=== PATIENT | male | born 1955 | race Caucasian/White ===

== ENCOUNTER 2021-05-12 20:27 | Day surgery (SDCO) | payer MEDICARE, OTHER ==
[~2021-05-12] VITALS: Ht 175.3 cm; Wt 77.1 kg
[~2021-05-12 20:27] MED LIST: ASPIRIN CHEWABL81 MG PO; DIGITEK125 MCG PO; DUONEB 2.5-0.5M1 AMP INH; HABITROL14 MG TD; LOPRESSOR25 MG PO
[2021-05-12 21:15] LABS: BASOPHIL 1.4 % (0-2); EOSINOPHIL 1.2 % (0-7); HCT 43.2 % (42.0-52.0); HGB 13.8 g/dl (13.2-18.0); MCH 28.9 pg (25.0-31.0); MCHC 31.9 g/dL (32.0-36.0); MCV 90.4 fL (78.0-100.0); MONOCYTE 10.3 % (0-12); MPV 8.7 fL (6.0-9.5); NEUTROPHIL 53.8 % (41-80); NRBC 0; PLT 405 K/uL (150-400); RBC 4.78 M/uL (4.70-6.00); RDW 13.2 % (11.5-14.0); WBC 9.9 K/uL (4.0-10.5)
[2021-05-12 21:20] LABS: INR 1.2 (0.9-1.2); PROTHROMBIN TIME 14.6 SECONDS (11.8-13.4); PTT 32.5 SECONDS (24.4-34.7)
[2021-05-12 21:21] LABS: D-DIMER 1.86 ug/mLFEU (0.00-0.41)
[2021-05-12 21:27] LABS: ALBUMIN 2.3 g/dL (3.4-5.0); BILIRUBIN - TOTAL 0.2 mg/dL (0.2-1.0); BUN/CREAT RATIO (CALC) 22.4 RATIO; CREATININE 0.85 mg/dL (0.67-1.17); GLOBULIN (CALCULATION) 4.3 g/dL; POTASSIUM 3.9 mmol/L (3.5-5.1); TOTAL PROTEIN 6.6 g/dL (6.4-8.2)
[2021-05-12 21:32] LABS: PRO-BNP 238 pg/mL (<125)
[2021-05-12 23:59] LABS: BILIRUBIN NEGATIVE (NEGATIVE); BLOOD NEGATIVE Ery/uL (NEGATIVE); CLARITY CLEAR (CLEAR); COLOR YELLOW (YELLOW); GLUCOSE (U) NORMAL (NORMAL); LEUKOCYTES NEGATIVE Leu/uL (NEGATIVE); NITRITE NEGATIVE (NEGATIVE); PROTEIN NEGATIVE (NEGATIVE); pH 6.5 (5.0-9.0)
[2021-05-13 00:05] LABS: AMPHETAMINES POSITIVE (NEGATIVE); BARBITURATES NEGATIVE (NEGATIVE); ECSTASY (MDMA) NEGATIVE (NEGATIVE); MARIJUANA (THC) NEGATIVE (NEGATIVE); METHADONE NEGATIVE (NEGATIVE); OPIATES NEGATIVE (NEGATIVE); OXYCODONE NEGATIVE (NEGATIVE)
[2021-05-13] MEDS ORDERED: CARDIZEM CD180 MG PO (00:56)
[2021-05-13] MEDS ORDERED: ELIQUIS5 MG PO (00:57)
[2021-05-13] MEDS ORDERED: PRINIVIL10 MG PO (00:58)
[2021-05-13 05:42] LABS: BASOPHIL 1.2 % (0-2); EOSINOPHIL 2.1 % (0-7); HGB 12.9 g/dl (13.2-18.0); LYMPHOCYTE 32.3 % (15-48); MCH 29.1 pg (25.0-31.0); MCHC 32.3 g/dL (32.0-36.0); MCV 90.3 fL (78.0-100.0); MONOCYTE 10.1 % (0-12); MPV 8.7 fL (6.0-9.5); NEUTROPHIL 51.4 % (41-80); NRBC 0; PLT 338 K/uL (150-400); RBC 4.43 M/uL (4.70-6.00); RDW 13.1 % (11.5-14.0); WBC 9.4 K/uL (4.0-10.5)
[2021-05-13 06:02] LABS: BUN/CREAT RATIO (CALC) 20.8 RATIO; CREATININE 0.77 mg/dL (0.67-1.17); POTASSIUM 4.1 mmol/L (3.5-5.1)
[2021-05-14 04:22] LABS: BASOPHIL 1.3 % (0-2); EOSINOPHIL 2.2 % (0-7); HCT 41.4 % (42.0-52.0); HGB 13.3 g/dl (13.2-18.0); LYMPHOCYTE 29.5 % (15-48); MCH 29.1 pg (25.0-31.0); MCHC 32.1 g/dL (32.0-36.0); MCV 90.6 fL (78.0-100.0); MONOCYTE 9.6 % (0-12); MPV 8.7 fL (6.0-9.5); NEUTROPHIL 55.2 % (41-80); NRBC 0; PLT 349 K/uL (150-400); RBC 4.57 M/uL (4.70-6.00); RDW 13.2 % (11.5-14.0); WBC 9.8 K/uL (4.0-10.5)
[2021-05-14 04:53] LABS: ALBUMIN 2.2 g/dL (3.4-5.0); BILIRUBIN - TOTAL 0.3 mg/dL (0.2-1.0); BUN/CREAT RATIO (CALC) 16.7 RATIO; CREATININE 0.9 mg/dL (0.67-1.17); GLOBULIN (CALCULATION) 4.5 g/dL; POTASSIUM 4.2 mmol/L (3.5-5.1); TOTAL PROTEIN 6.7 g/dL (6.4-8.2)
[2021-05-14] MEDS ORDERED: VIBRAMYCIN100 MG PO ×2 (12:11→14:16)
[2021-05-14] MEDS ORDERED: LACTOBACILLUS1 EACH PO (12:11)
== END 2021-05-14 14:00 | disposition home or self-care (01) ==
LOC: FER 20:27 → FMS 23:59 → FER 05-13 00:30 → FMS 05-14 14:00
PROVIDERS: Emergency Medicine; Family Medicine; Nurse Practitioner; ADMIT Internal Medicine
DX: J18.9 Pneumonia, unspecified organism (principal); J96.01 Acute respiratory failure with hypoxia; I48.20 Chronic atrial fibrillation, unspecified; F15.10 Other stimulant abuse, uncomplicated; F17.210 Nicotine dependence, cigarettes, uncomplicated; Z79.01 Long term (current) use of anticoagulants; Z79.899 Other long term (current) drug therapy; Z20.822 Contact with and (suspected) exposure to COVID-19
CPT/HCPCS: 36415; 36600; 71045; 71275; 80048; 80053; 80162; 80305; 81003; 82803; 83880; 84145; 84484; 85025; 85379; 85610; 85730; 93005; 94010; 94640; 94667; 94668; G0378; J0456; J0692; J0696; J7050; Q9967; U0002

== ENCOUNTER 2022-01-21 13:22 | Day surgery (SDCO) | payer MEDICARE ==
[~2022-01-21] VITALS: Ht 175.3 cm; Wt 80.4 kg
[~2022-01-21 13:22] MED LIST changes: +CARDIZEM CD180 MG PO; +ELIQUIS5 MG PO; +LACTOBACILLUS1 EACH PO; +PRINIVIL10 MG PO; +VIBRAMYCIN100 MG PO
[2022-01-21 13:50] LABS: BASOPHIL 0.6 % (0-2); EOSINOPHIL 0.9 % (0-7); HGB 15.8 g/dl (13.2-18.0); LYMPHOCYTE 15.1 % (15-48); MCH 29.9 pg (25.0-31.0); MCHC 33.6 g/dL (32.0-36.0); MCV 88.8 fL (78.0-100.0); MONOCYTE 12.2 % (0-12); MPV 9.1 fL (6.0-9.5); NEUTROPHIL 70.2 % (41-80); NRBC 0; PLT 340 K/uL (150-400); RBC 5.29 M/uL (4.70-6.00); RDW 12.5 % (11.5-14.0); WBC 15.8 K/uL (4.0-10.5)
[2022-01-21 14:30] LABS: ALBUMIN 2.6 g/dL (3.4-5.0); BILIRUBIN - TOTAL 0.4 mg/dL (0.2-1.0); BUN/CREAT RATIO (CALC) 18.2 RATIO; CREATININE 0.88 mg/dL (0.67-1.17); POTASSIUM 4.4 mmol/L (3.5-5.1); TOTAL PROTEIN 6.6 g/dL (6.4-8.2)
[2022-01-21 19:22] LABS: BILIRUBIN NEGATIVE (NEGATIVE); BLOOD TRACE-INTACT Ery/uL (NEGATIVE); CLARITY CLEAR (CLEAR); COLOR YELLOW (YELLOW); GLUCOSE (U) NORMAL (NORMAL); LEUKOCYTES NEGATIVE Leu/uL (NEGATIVE); NITRITE NEGATIVE (NEGATIVE); PROTEIN NEGATIVE (NEGATIVE); pH 6.5 (5.0-9.0)
[2022-01-21 19:36] LABS: BACTERIA 1+
[2022-01-22 06:07] LABS: BUN/CREAT RATIO (CALC) 17.5 RATIO; C-REACTIVE PROTEIN 6.2 mg/dL (<=0.90); CREATININE 0.8 mg/dL (0.67-1.17); POTASSIUM 4.2 mmol/L (3.5-5.1)
[2022-01-22] MEDS ORDERED: LASIX20 MG PO (07:45)
[2022-01-22] MEDS ORDERED: SPIRIVA RESPIMAT4 GM INH (07:46)
[2022-01-22] MEDS ORDERED: CEFDINIR300 MG PO (07:46)
[2022-01-22] MEDS ORDERED: AZITHROMYCIN250 MG PO (07:46)
== END 2022-01-22 11:27 | disposition home or self-care (01) ==
LOC: FER 13:22 → FMS 15:34
PROVIDERS: Emergency Medicine; ADMIT Allergy & Immunology Allergy
DX: J18.9 Pneumonia, unspecified organism (principal); J96.01 Acute respiratory failure with hypoxia; I11.0 Hypertensive heart disease with heart failure; I50.9 Heart failure, unspecified; F17.210 Nicotine dependence, cigarettes, uncomplicated; I48.91 Unspecified atrial fibrillation; Z79.01 Long term (current) use of anticoagulants; Z79.899 Other long term (current) drug therapy; Z20.822 Contact with and (suspected) exposure to COVID-19
CPT/HCPCS: 36415; 36600; 71045; 80048; 80053; 81001; 82150; 82803; 83605; 83880; 84145; 84484; 85025; 86140; 87040; 93005; 94010; 94640; 94667; 94668; G0378; J0456; J0696; J2543; J7030; J7050; U0002